=== PATIENT | male | born 1990 | race Caucasian/White ===

== ENCOUNTER → 2021-08-15 10:41 | Outpatient (BNVA) | payer OTHER, SELFPAY | PROVIDERS: Family Provider Family Medicine; PCP Nurse Practitioner Family; Visit Provider Nurse Practitioner Family | DX: Z00.00 Encounter for general adult medical examination without abnormal findings (principal); F41.9 Anxiety disorder, unspecified; F32.A Depression, unspecified; R53.83 Other fatigue | CPT/HCPCS: 80053; 80061; 81003; 82306; 83036; 84443; 85025 ==

== ENCOUNTER → 2021-12-12 15:35 | Outpatient (BNVA) | payer OTHER, SELFPAY | PROVIDERS: Family Provider Family Medicine; PCP Nurse Practitioner Family; Visit Provider Nurse Practitioner | DX: R53.83 Other fatigue (principal); K21.9 Gastro-esophageal reflux disease without esophagitis | CPT/HCPCS: 86705; 86706; 86709; 86803; 87340 ==

== ENCOUNTER 2023-10-15 12:27 | Outpatient (CLI) | payer OTHER, SELFPAY ==
--- NOTE | 2023-10-15 13:00 | MR_ITS ---
WS: [id number] EXAMINATION: MR ankle LT wo con* [id number] ORDER DATE: 10/15/2023 12:53 PM COMPARISON: None. HISTORY: surgical planning CONTRAST: None. TECHNIQUE: Axial proton density fat sat, axial T1, sagittal proton density, sagittal STIR, coronal T2 fat sat, and coronal T1 sequences performed. FINDINGS: High-grade complete tear of the Achilles tendon with fluid and edema. Complete tear with fluid-filled defect approximately 8.5 cm from the distal insertion. Additional interstitial tear is seen in the d istal tendon. Diffusely thickened and edematous distal tendon compatible with tendinosis. Trace fluid in the retrocalcaneal bursa. Normal peroneal tendon sheath. Normal extensor and flexor co mpartment tendons. Talar dome is normal in appearance. Normal medial and lateral malleolus. Normal ta lonavicular articulation. Calcaneus appears normal. Normal cuboid. Base of the fifth metatarsal appea rs normal. Normal plantar aponeurosis. ATF appears intact. Calcaneofibular ligament appears intact. IMPRESSION: 1. High-grade complete tear of the proximal Achilles tendon approximately 8.5 cm from the distal ins ertion with fluid-filled defect. Tendon widening measures approximately 2 mm. 2. Additional interstitial tear involving the distal Achilles tendon. 3. Diffusely thickened and edematous distal Achilles compatible with tendinosis. 4. No other acute findings.
== END 2023-10-15 12:28 | disposition home or self-care (01) ==
LOC: RAD 12:28
PROVIDERS: Family Provider Family Medicine; PCP Nurse Practitioner Family; Visit Provider Podiatrist Foot & Ankle Surgery
DX: S86.012A Strain of left Achilles tendon, initial encounter (principal); X50.0XXA Overexertion from strenuous movement or load, initial encounter; Y93.67 Activity, basketball
CPT/HCPCS: 73721

== ENCOUNTER 2023-10-23 05:46 | Day surgery (SDC) | payer OTHER, SELFPAY ==
[2023-10-23] VITALS (10 sets, daily range): BP systolic 109–143; BP diastolic 67–89; PULSE 60–89; RESP 10–18; TEMP 36.1–36.6; O2SAT 94–100; BMI 27.2
[2023-10-23] MEDS: sodium chloride 0.9% 1,000 ML 30 ML IV (06:29)
--- NOTE | 2023-10-23 06:58 | W.PM.OPSUD ---
Surgery/Procedure H&P Update DATE OF PROCEDURE: October 23, 2023 DATE H&P PERFORMED: 10/19/23 H&P UPDATE INFORMATION: I have reviewed H&P completed within last 30 days, I have examined patient prior to procedure, No changes to prior documentation and H&P is in [facility] EMR on date indicated PREOP DIAGNOSIS: Left Achilles tendon rupture PRIMARY INDICATION FOR PROCEDURE: Left Achilles tendon rupture PLANNED PROCEDURE: Operation Date: 10/23/23 07:00 Proposed Procedures p Achilles Tendon Repair(Left) - Hesham Lopes DPM
[2023-10-23] MEDS: ceFAZolin 2,000 MG in sodium chloride 0.9% (plus) 50 ML 100 MG IV (07:02)
--- NOTE | 2023-10-23 07:02 | ANES.PREANE2 ---
Pre-Anesthetic Assessment Height/Weight: Height 1.78 m Weight 86.183 kg Temp Pulse Resp BP Pulse Ox O2 Del Method 97.8 F 63 18 133/88 97 Room Air 10/23/23 06:26 10/23/23 06:26 10/23/23 06:26 10/23/23 06:26 10/23/23 06:26 10/23/23 06:26 Preop Diagnosis: Left Achilles tendon rupture Operation Date: 10/23/23 07:00 Proposed Procedures p Achilles Tendon Repair(Left) - Hesham Lopes DPM Familial anesthetic complications: None Was Beta Rola taken within 24 hours: N/A Was Clonidine taken within 24 hours: N/A Last intake: Intake Last Liquid Date 10/22/23 Last Liquid Time 20:00 Last Solid Date 10/22/23 Last Solid Time 19:30 Social No alcohol and No tobacco Exam alert, oriented x 3, clear to auscultation bilaterally and regular rate & rhythm Airway Mallampati: Class II Dentition: full Pulmonary None reported CV/HEM 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 GI Gastroesophageal Reflux Disease Anesthetic Plan ASA status: 1 Anesthesia: General and Regional (specify below) Risk of > 500 ml blood loss (7ml/kg in children): No Medications/Allergies Home Medications Medication Instructions Recorded Confirmed Last Taken Type No Known Home Medications 10/12/23 10/23/23 Unknown History hydrocodone 10 mg-acetaminophen 1 tab PO Q6H PRN pain 7 days #28 10/23/23 Unknown Rx 325 mg tablet tabs Allergies Allergy/AdvReac Type Severity Reaction Status Date / Time No Known Allergies Allergy Verified 10/23/23 06:07 Current Medications Generic Name Dose Route Start Last Admin Trade Name Freq PRN Reason Stop Dose Admin Sodium Chloride 1,000 mls @ 30 mls/hr 10/23/23 06:15 10/23/23 06:29 Sodium Chloride 0.9% IV 10/24/23 06:14 30 mls/hr .Q24H GAVIN Administration PFSH Anesthesia Medical History GERD (gastroesophageal reflux disease) Family history of colon cancer in father Myocarditis [id number] OZH Family history of colon cancer in father Anxiety and depression Surgical History H/O hernia repair umbilical hernia repair with mesh 2010 Social History Smoking and tobacco/nicotine status: never used tobacco/nicotine Data Anesthesia Cardiac Studies: No Data to Display
--- NOTE | 2023-10-23 07:03 | ANES.PROC ---
Anesthesia Procedures Procedure/Date: 10/23/23 Nerve Block ^: Nerve Block 1: Main Anesthesia: general anesthesia Time Out Performed: Yes Consent: requested by attending/covering physician, from patient, from other, risks and benefits reviewed and patient agrees to proceed Nerve block location: popliteal (L) Anesthesia monitors applied: pulse oximetry, EKG, BP cuff and oxygen Nerve block position: supine Anesthetic Used: ropivicaine 0.5% (30 ml) and with decadron (4 mg) Ultrasound used to: recognize landmarks and visualize and ID femerol nerve Nerve Stimulator Used?: No Interscalene/Femoral BLK: 4 stimuplex 21 g needle used for position and inplane approach, visualize local anesthetic spread and no vascular puncture identified Injection: neg aspiration of heme Patient Tolerated Procedure: well Complications: none
--- NOTE | 2023-10-23 08:14 | PM.OP ---
Operative Report Date of procedure: October 23, 2023 Pre-op diagnosis: Left Achilles tendon rupture Post-op diagnosis: left Achilles tendon rupture Post-op findings: Complete rupture of the left Achilles tendon with 3 cm gapping Procedure done: Left Achilles tendon repair. CPT code 68345 Implants: #2 FiberWire, 3-0 Vicryl, 4-0 nylon. Specimens removed/disposition: No specimens Pathology: No pathology Surgeon: Hesham Lopes DPM Senior Hr Business Partner: Antonio Estimated blood loss: Less than 5 mL 32 IV fluids: See intraoperative documentation Urine output: None Complications: No complications Findings: As above Brief History: Reviewed MRI findings and clinical findings with patient at length. He has a complete tear of the Achilles tendon Proximal to the watershed zone and a interstitial tear from watershed zone down to insertion. Patient would like to proceed with surgical intervention in hopes of a quicker return to work and activities. I printed off a Achilles tendon rehabilitation protocol that we will be following postoperatively as indicated. I reviewed at length with the patient, the risks, potential complications, benefits, alternatives, expectations, and typical outcomes associated with the surgery. The risks and potential complications were explained in detail, including but not limited to infection, wound dehiscence or soft tissue complications, bleeding and hematoma, chronic edema, neuritis or nerve damage producing numbness or chronic pain, CRPS, failure to relieve pain or worsening pain, thick / painful / unsightly scar, limited motion / stiffness, malposition, delayed union, malunion, or nonunion, fracture, reaction to implants, anesthetic complications, venous thromboembolism, and deformity recurrence. I discussed the notion of no regrets with the patient as it pertains to complications and outcomes. The patient seemed to understand the nature of the proposed care and required convalescence. They asked appropriate questions, answered to their satisfaction. They are aware no guarantees can be made as to a satisfactory outcome and they understand there may be other possible unforeseen complications or outcomes not listed here that will be treated accordingly if they arise. There were no written or implied guarantees given to the patient. They gave informed consent to proceed. Procedure: Under mild sedation the patient was brought to the operating room and general anesthesia was administered by the anesthesia service, of note left popliteal block performed per anesthesia preoperatively. Well-padded pneumatic tourniquet was applied to the left high thigh. Patient was then positioned into the prone position onto the operating table with appropriate padding. Left lower extremity was scrubbed, prepped and draped utilizing normal aseptic technique. Left foot and ankle as well as leg were exanguinated with an Esmarch bandage and tourniquet inflated to 250 mmHg. Attention was directed to the left Achilles where a midline incision was performed through skin with a #15 blade. Dissection was carried down bluntly and sharply to the layer peritenon with care taken to retract and preserve neurovascular and tendinous structures. All bleeders were ligated and cauterized as necessary. Peritenon incision was performed midline and the Achilles tendon was visualized, there was a complete rupture just proximal to the watershed zone with 3 cm gapping. All frayed ends were sharply transected. The incision was irrigated with saline solution and the Achilles tendon was repaired directly utilizing a Krak?w stitch with #2 Force Fiber with excellent apposition in the end and excellent pullout strength, there was a robust repair appreciated intraoperatively with gliding tendon with dorsiflexion to neutral showing no failure at the suture repair. Additional remodeling of the Achilles and additional augmentation of repair performed with 3-0 Vicryl. The incision was irrigated with copious amounts of sterile saline solution followed by closure with peritenon reapproximated with 3-0 Vicryl, subcutaneous tissue with 4-0 Vicryl and skin with 4-0 nylon. The incision was then dressed with Adaptic, sterile 4 x 4's, Kerlix and application of a multilayer compressive posterior splint with ankle joint in equinus position. Tourniquet was then deflated and a prompt hyperemic response was noted to the distal digits of the left foot. Patient tolerated the procedure and anesthesia well and was transferred to the PACU with vital signs stable and vascular status intact. Following a period of postoperative monitoring he will be discharged home is to remain strict nonweightbearing to the left lower extremity. He is to elevate his left foot while resting. Was given at home care instructions, scheduled follow-up and my cell phone number to contact me with any postoperative questions or concerns.
--- NOTE | 2023-10-23 09:35 | ANE.PACU2 ---
Inpatient post-anesthesia follow up: Airway intact: Yes Vital signs: Temperature 97.0 F Pulse Rate 65 Respiratory Rate 16 Blood Pressure 120/75 Pulse Oximetry 98 Oxygen Delivery Me thod Room Air Oxygen Flow Rate 6 Fraction of Inspir ed Oxygen Hydration adequate: Yes Nausea and vomiting: No Pain level: 1 Mental status: Baseline
== END 2023-10-23 09:37 | disposition home or self-care (01) ==
PROVIDERS: PCP Nurse Practitioner Family; Visit Provider Podiatrist Foot & Ankle Surgery
PROC: (CPT 27650; principal; 2023-10-23 07:00)
DX: S86.012A Strain of left Achilles tendon, initial encounter (principal); X58.XXXA Exposure to other specified factors, initial encounter; K21.9 Gastro-esophageal reflux disease without esophagitis; Z80.0 Family history of malignant neoplasm of digestive organs
CPT/HCPCS: 27650; J0690; J1100; J1885; J2250; J2371; J2405; J2704; J2710; J2795; J3010; J3490; J7030

== ENCOUNTER 2023-11-12 14:52 | Outpatient (CLI) | payer OTHER, SELFPAY | END 2023-11-12 14:53 | disposition home or self-care (01) | LOC: SPT 14:53 | PROVIDERS: PCP Nurse Practitioner Family; Visit Provider Podiatrist Foot & Ankle Surgery | DX: Z47.89 Encounter for other orthopedic aftercare (principal); S86.012D Strain of left Achilles tendon, subsequent encounter; X58.XXXD Exposure to other specified factors, subsequent encounter | CPT/HCPCS: L4361 ==

== ENCOUNTER 2024-05-18 08:24 | Day surgery (SDC) | payer OTHER, SELFPAY ==
[2024-05-18 08:34] VITALS: BP 137/90; PULSE 83; RESP 16; TEMP 36.3; O2SAT 99; BMI 27.8
[2024-05-18] MEDS: sodium chloride 0.9% 1,000 ML 30 ML IV (08:40)
--- NOTE | 2024-05-18 09:14 | ANES.PREANE2 ---
Pre-Anesthetic Assessment Height/Weight: Height 5 ft 10 in Weight 194 lb Temp Pulse Resp BP Pulse Ox O2 Del Method 97.4 F L 83 16 137/90 99 Room Air 05/18/24 08:34 05/18/24 08:34 05/18/24 08:34 05/18/24 08:34 05/18/24 08:34 05/18/24 08:34 Preop Diagnosis: Screening colonoscopy Operation Date: 05/18/24 09:30 Proposed Procedures p Colonoscopy - 45572, g0105, z80.0 z12.11(Not Applicable) - Keenan Khan DO Was Beta Rola taken within 24 hours: N/A Was Clonidine taken within 24 hours: N/A Last intake: Intake Last Liquid Date 05/17/24 Last Liquid Time 21:00 Last Solid Date 05/16/24 Last Solid Time 19:00 Social No alcohol and No tobacco Exam alert, oriented x 3, clear to auscultation bilaterally and regular rate & rhythm Airway Submandibular: within normal limits Mallampati: Class I Dentition: full Anesthetic Plan ASA status: 1 Anesthesia: MAC Other: No prior issues with anesthesia Diet controlled GERD Strong family history of colon cancer here for screening today Completed bowel prep Denies any cardiac or pulmonary issues METs greater than 4 Plan for MAC anesthetic Medications/Allergies Home Medications Medication Instructions Recorded Confirmed Last Taken Type No Known Home Medications 05/16/24 05/16/24 Unknown History Allergies Allergy/AdvReac Type Severity Reaction Status Date / Time No Known Allergies Allergy Verified 04/08/24 10:04 Current Medications Generic Name Dose Route Start Last Admin Trade Name Freq PRN Reason Stop Dose Admin Sodium Chloride 1,000 mls @ 30 mls/hr 05/18/24 08:30 05/18/24 08:40 Sodium Chloride 0.9% IV 05/19/24 08:29 30 mls/hr .Q24H GAVIN Administration PFSH Anesthesia Medical History GERD (gastroesophageal reflux disease) Family history of colon cancer in father Myocarditis [id number] OZH Family history of colon cancer in father Anxiety and depression Surgical History H/O hernia repair umbilical hernia repair with mesh 2010 Family History Father Colon cancer Social History Smoking and tobacco/nicotine status: never used tobacco/nicotine Alcohol intake: current Alcohol intake frequency: holidays/special occasions only Data Anesthesia Cardiac Studies: No Data to Display
--- NOTE | 2024-05-18 10:11 | PM.HP ---
Providers/Chief Complaint Primary Care Provider: WILNER Waters Chief Complaint: Z12.11 History of Present Illness Eric Dickinson is a 33 year old male Review of Systems General: Reports: 10 or more systems reviewed and unremarkable except in HPI and below Medications/Allergies Home Medications Medication Instructions Recorded Confirmed Last Taken Type No Known Home Medications 05/16/24 05/16/24 Unknown History Allergies Allergy/AdvReac Type Severity Reaction Status Date / Time No Known Allergies Allergy Verified 04/08/24 10:04 PFSH Acute PFSH: Medical History GERD (gastroesophageal reflux disease) Family history of colon cancer in father Myocarditis [id number] OZH Family history of colon cancer in father Anxiety and depression Surgical History H/O hernia repair umbilical hernia repair with mesh 2010 Family History Father Colon cancer Social History Smoking and tobacco/nicotine status: never used tobacco/nicotine Alcohol intake: current Alcohol intake frequency: holidays/special occasions only Vitals/I&O/Wt Last Vital Signs Temp 97.4 F L 05/18/24 08:34 Pulse 83 05/18/24 08:34 Resp 16 05/18/24 08:34 BP 137/90 05/18/24 08:34 Pulse Ox 99 05/18/24 08:34 O2 Del Method Room Air 05/18/24 08:34 Weight last 48 hrs Weight 194 lb A&P Assessment and plan (1) Family history of colon cancer in father: Plan Screening colonoscopy Attestations Medical Necessity Statement*: Home Coding Level of Care Code Acute Code for Chg Fwd Diagnoses Family history of colon cancer in father Z80.0
[2024-05-18 10:25] VITALS: BP 106/63; PULSE 63; RESP 14; TEMP 36.1; O2SAT 97
[2024-05-18 10:30] VITALS: BP 108/56; PULSE 62; RESP 16; O2SAT 99
[2024-05-18 10:40] VITALS: BP 107/66; PULSE 55; RESP 18; O2SAT 99
--- NOTE | 2024-05-18 10:55 | ANE.PACU2 ---
Inpatient post-anesthesia follow up: Airway intact: Yes Vital signs: Temperature 97.0 F Pulse Rate 55 Respiratory Rate 18 Blood Pressure 107/66 Pulse Oximetry 99 Oxygen Delivery Me thod Room Air Oxygen Flow Rate 2 Fraction of Inspir ed Oxygen Hydration adequate: Yes Nausea and vomiting: No Pain level: 1 Mental status: Baseline
== END 2024-05-18 10:55 | disposition home or self-care (01) ==
PROVIDERS: PCP Nurse Practitioner Family; Visit Provider Surgery
PROC: 0DJD8ZZ Inspection of Lower Intestinal Tract, Via Natural or Artificial Opening Endoscopic (ICD-10-PCS; CPT 45378; principal; 2024-05-18 09:30)
DX: Z12.11 Encounter for screening for malignant neoplasm of colon (principal); Z80.0 Family history of malignant neoplasm of digestive organs; K21.9 Gastro-esophageal reflux disease without esophagitis; F41.9 Anxiety disorder, unspecified; F32.A Depression, unspecified
CPT/HCPCS: 45378; J2704; J7030